=== PATIENT | female | born 1960 | race Caucasian/White ===

== ENCOUNTER 2017-08-26 23:21 | Emergency (ER) | payer OTHER ==
[~2017-08-26] VITALS: Ht 162.6 cm; Wt 70.7 kg
[~2017-08-26 23:21] MED LIST: ADULT LOW DOSE81 M1 PO; ADVAIR 100/501 DISK IH; ALBUTEROL17 G1 IH; ALPRAZOLAM0.25 MG PO; AUGMENTIN875 MG PO; DIFLUCAN150 MG PO; DUONEB3 ML IH; FLOVENT 11120 INHALA IH; LYRICA100 MG PO; NEXIUM20 MG PO; OXYBUTYNIN CHLOR5 M1 PO; PEN-VEE K,VEET500 MG PO; RANITIDINE HCL150 M1 PO; SIMVASTATIN20 M1 G-TUBE; SINGULAIR10 MG PO; ZOCOR20 MG PO
[2017-08-27 00:17] LABS: CHLORIDE 103 mEq/L (99-109); SODIUM 141 mEq/L (136-147)
[2017-08-27 00:19] LABS: GLUCOSE 147 mg/dL (70-99)
[2017-08-27 00:20] LABS: ANION GAP 11 MEQ/L (2-14)
[2017-08-27 00:21] LABS: HEMATOCRIT 40.4 % (36.0-46.0); MCH 32.2 PG (29.0-34.0); MCHC 33.9 G/DL (30.0-36.0); MCV 94.8 FL (83-99); MEAN PLAT.VOLUME 9.4 uM^3 (9.5-12.4); PLATELET COUNT 284 K/uL (156-360); RBC DIS.WIDTH-CV 12.8 % (11.8-14.6); RBC DIS.WIDTH-SD 44.4 % (39-53); RED BLOOD COUNT 4.26 M/uL (3.80-5.20); TOTAL BILIRUBIN 0.1 mg/dL (0.0-1.0); WHITE BLOOD COUNT 13.2 K/uL (4.1-10.2)
[2017-08-27 00:22] LABS: ALKALINE PHOSPHATASE 108 IU/L (3-129)
[2017-08-27 00:23] LABS: GFR ESTIMATE (CALCULATED) > 59 mL/min/
[2017-08-27 00:24] LABS: UREA NITROGEN (BUN) 12 mg/dL (9-23)
[2017-08-27 00:26] LABS: LIPASE 19 U/L (1.0-51.0)
[2017-08-27 01:32] LABS: ADD MIUA? NO; BILIRUBIN NEGATIVE; BLOOD NEGATIVE; COLOR YELLOW ((YELLOW)); GLUCOSE (STRIP) NEGATIVE; KETONES NEGATIVE; LEUKOCYTES NEGATIVE; NITRITE NEGATIVE; PROTEIN (STRIP) NEGATIVE; SPECIFIC GRAVITY 1.017 (1.000-1.030); UCUL ADDED? NO; UROBILINOGEN 0.2 MG/DL (0.2-1.0)
[2017-08-27] MEDS ORDERED: CARAFATE1 GM PO (01:53)
[2017-08-27] MEDS ORDERED: COLACE100 MG PO (01:53)
[2017-08-27 02:05] VITALS: BP 129/67
== END 2017-08-27 02:06 | disposition home or self-care (01) ==
LOC: EME 23:21
PROVIDERS: Physician Assistant
DX: K29.70 Gastritis, unspecified, without bleeding (principal); K59.00 Constipation, unspecified; K21.9 Gastro-esophageal reflux disease without esophagitis; J44.9 Chronic obstructive pulmonary disease, unspecified; Z79.82 Long term (current) use of aspirin; F17.200 Nicotine dependence, unspecified, uncomplicated
CPT/HCPCS: 74176; 80053; 81003; 83690; 85027; 99281; 99285